=== PATIENT | male | born 1970 | race Two or more races ===

== ENCOUNTER 2023-06-08 09:16 | Inpatient (IN) | payer MEDICAID ==
[~2023-06-08] VITALS: Ht 162.6 cm; Wt 113.4 kg
[2023-06-08 10:17] LABS: Basophils # (auto) 0.1 10 ^3/uL (0-0.2); Basophils % (auto) 0.6 % (0.0-2.0); Eosinophils # (auto) 0.1 10 ^3/uL (0-0.8); Eosinophils % (auto) 0.8 % (0.0-7.0); Hematocrit 47.1 % (41.0-53.0); Hemoglobin 15.4 g/dL (13.5-17.5); Lymphocytes # (auto) 1.4 10 ^3/uL (0.4-5.4); Lymphocytes % (auto) 11.1 % (10.0-50.0); Mean Corpuscular Hemoglobin 28.1 pg (28.0-32.0); Mean Corpuscular Hgb Conc. 32.7 g/dL (32.0-36.0); Mean Corpuscular Volume 85.9 fL (80.0-100.0); Monocytes # (auto) 0.7 10 ^3/uL (0-1.3); Neutrophils # (auto) 10.7 10 ^3/uL (1.6-8.6); Neutrophils % (auto) 82.5 % (37.0-80.0); Red Blood Cells 5.48 10^6/uL (4.5-5.90); Red Cell Distribution Width 15.3 % (11.8-14.3)
[2023-06-08 10:48] LABS: Alanine Aminotransferase 35 U/L (7-40); Albumin 4.3 g/dL (3.2-4.8); Alkaline Phosphatase 66 U/L (46-116); Anion Gap 5 (5-15); Aspartate Aminotransferase 23 U/L (13-40); BUN/Creatinine Ratio 13.9 (10.0-20.0); Bilirubin, Total 0.4 mg/dL (0.2-1.0); Blood Urea Nitrogen 11 mg/dL (9-23); Carbon Dioxide 25 mmol/L (20-30); Chloride 109 mmol/L (98-107); Glucose 139 mg/dL (74-106); Potassium 4.1 mmol/L (3.5-5.1); Sodium 139 mmol/L (136-145); Total Protein 6.8 g/dL (5.7-8.2)
[2023-06-08 11:21] LABS: Lipase 43 U/L (12-53)
[2023-06-08 11:24] LABS: Urine Bacteria NONE SEEN /hpf (None Seen); Urine Blood 3+ /uL (Negative); Urine Clarity Clear (Clear); Urine Color Yellow (Yellow); Urine Mucus FEW (None Seen); Urine Protein, UAD TRACE (Negative); Urine Urobilinogen Normal (Negative); Urine WBC 2 /hpf (0 - 3); Urine pH 6.5 (5.0-8.0)
[2023-06-08] MEDS ORDERED: MORPHINE SULFATE INJ 2 MG/ml SYRG IV PRN (12:15)
[2023-06-08] MEDS ORDERED: ONDANSETRON HCL 4 MG/2 ML VIAL IV PRN (12:15)
[2023-06-08] MEDS ORDERED: DOCUSATE SOD 100 MG CAP PO PRN (12:15)
[2023-06-08] MEDS: SODIUM CHLORIDE 0.9% 1,000 ML IV SCH (12:43)
[2023-06-08] MEDS: DICYCLOMINE HCL (10MG/ML) 2 ML AMPULE IM ONE (12:45)
[2023-06-08 14:19] VITALS: PULSE 80; RESP 19; O2SAT 98
[2023-06-08 15:39] VITALS: PULSE 69; RESP 17; O2SAT 98
[2023-06-08 17:23] VITALS: BP 136/83; PULSE 69; RESP 17; TEMP 97.8; O2SAT 98
[2023-06-08] MEDS: DICYCLOMINE HCL 10 MG CAP PO SCH (19:52)
[2023-06-08 20:19] VITALS: PULSE 67; RESP 18; O2SAT 94
[2023-06-08 21:00] VITALS: BP 111/67; PULSE 67; RESP 18; TEMP 97.7; O2SAT 94
[2023-06-09] VITALS (7 sets, daily range): BP systolic 117–156; BP diastolic 65–81; PULSE 18–80; RESP 14–20; TEMP 97.9–98.4; O2SAT 94–99
[2023-06-09 06:15] LABS: Basophils # (auto) 0.1 10 ^3/uL (0-0.2); Basophils % (auto) 0.8 % (0.0-2.0); Eosinophils # (auto) 0.3 10 ^3/uL (0-0.8); Eosinophils % (auto) 3.4 % (0.0-7.0); Hematocrit 44.8 % (41.0-53.0); Hemoglobin 14.7 g/dL (13.5-17.5); Lymphocytes # (auto) 2.6 10 ^3/uL (0.4-5.4); Lymphocytes % (auto) 28.9 % (10.0-50.0); Mean Corpuscular Hemoglobin 28.1 pg (28.0-32.0); Mean Corpuscular Hgb Conc. 32.9 g/dL (32.0-36.0); Mean Corpuscular Volume 85.4 fL (80.0-100.0); Monocytes # (auto) 0.9 10 ^3/uL (0-1.3); Monocytes % (auto) 9.8 % (0.0-12.0); Neutrophils # (auto) 5.2 10 ^3/uL (1.6-8.6); Neutrophils % (auto) 57.1 % (37.0-80.0); Nucleated Red Blood Cells % 0.1 %; Red Blood Cells 5.24 10^6/uL (4.5-5.90); Red Cell Distribution Width 15.3 % (11.8-14.3)
[2023-06-09 06:38] LABS: Alanine Aminotransferase 27 U/L (7-40); Albumin 3.8 g/dL (3.2-4.8); Aspartate Aminotransferase 21 U/L (13-40)
[2023-06-09 06:39] LABS: Bilirubin, Total 0.6 mg/dL (0.2-1.0); Total Protein 6.3 g/dL (5.7-8.2)
[2023-06-09 06:40] LABS: Chloride 109 mmol/L (98-107); Potassium 3.6 mmol/L (3.5-5.1); Sodium 140 mmol/L (136-145)
[2023-06-09 06:42] LABS: Anion Gap 8 (5-15); Carbon Dioxide 23 mmol/L (20-30)
[2023-06-09 06:43] LABS: Calcium 8.8 mg/dL (8.7-10.4)
[2023-06-09 06:47] LABS: BUN/Creatinine Ratio 13.6 (10.0-20.0); Blood Urea Nitrogen 8 mg/dL (9-23)
[2023-06-09 06:48] LABS: Alkaline Phosphatase 53 U/L (46-116)
[2023-06-09 07:03] LABS: Glucose 111 mg/dL (74-106)
[2023-06-09] MEDS: cefTRIAXone 1GM/50ML D5W 50 ML IV SCH (12:03)
[2023-06-10 01:00] VITALS: BP 136/79; PULSE 76; RESP 18; TEMP 97.9; O2SAT 97
[2023-06-10 05:00] VITALS: BP 115/64; PULSE 82; RESP 18; TEMP 98.1; O2SAT 96
[2023-06-10 08:58] VITALS: BP 120/66; PULSE 67; RESP 18; TEMP 97.6; O2SAT 96
[2023-06-10 12:50] VITALS: BP 128/72; PULSE 68; RESP 19; TEMP 98.2; O2SAT 93
[2023-06-10] MEDS ORDERED: LEVO500T91 PO (13:29)
== END 2023-06-10 14:35 | disposition home or self-care (01) | DRG 465 ==
LOC: ER 09:16 → OVERFLOW 12:10 → EAST 14:35
PROVIDERS: ADMIT Nurse Practitioner Family; ATTEND Nurse Practitioner Family
DX: N20.0 Calculus of kidney (principal); D72.829 Elevated white blood cell count, unspecified; N39.0 Urinary tract infection, site not specified; R31.9 Hematuria, unspecified
CPT/HCPCS: 36415; 74176; 80053; 81001; 83690; 84484; 85025; 96372; G0378

== ENCOUNTER 2023-12-27 13:24 | Emergency (ER) | payer MEDICAID ==
[~2023-12-27] VITALS: Ht 165.1 cm; Wt 90.9 kg
[~2023-12-27 13:24] MED LIST: LEVO500T91 PO
[2023-12-27] MEDS: SODIUM CHLORIDE 0.9% 1,000 ML IVB ONE (13:45)
[2023-12-27 14:14] LABS: Basophils # (auto) 0.1 10 ^3/uL (0-0.2); Basophils % (auto) 0.4 % (0.0-2.0); Eosinophils # (auto) 0.1 10 ^3/uL (0-0.8); Eosinophils % (auto) 0.8 % (0.0-7.0); Hematocrit 45.5 % (41.0-53.0); Hemoglobin 15.6 g/dL (13.5-17.5); Lymphocytes # (auto) 2.1 10 ^3/uL (0.4-5.4); Lymphocytes % (auto) 12.9 % (10.0-50.0); Mean Corpuscular Hemoglobin 29.5 pg (28.0-32.0); Mean Corpuscular Hgb Conc. 34.4 g/dL (32.0-36.0); Mean Corpuscular Volume 85.8 fL (80.0-100.0); Monocytes # (auto) 1.2 10 ^3/uL (0-1.3); Monocytes % (auto) 7.6 % (0.0-12.0); Neutrophils # (auto) 12.4 10 ^3/uL (1.6-8.6); Neutrophils % (auto) 78.3 % (37.0-80.0); Platelet Count (auto) 201 10^3/uL (140-450); Red Cell Distribution Width 14.7 % (11.8-14.3); White Blood Cell 15.9 10^3/uL (4.4-10.8)
[2023-12-27 14:25] LABS: Chloride 108 mmol/L (98-107); Potassium 3.7 mmol/L (3.5-5.1); Sodium 140 mmol/L (136-145)
[2023-12-27 14:26] LABS: Anion Gap 8 (5-15); Calcium 9.4 mg/dL (8.7-10.4); Carbon Dioxide 24 mmol/L (20-31)
[2023-12-27 14:31] LABS: Blood Urea Nitrogen 13 mg/dL (9-23); Glucose 140 mg/dL (74-106)
[2023-12-27] MEDS: KETOROLAC TROMETH 30 MG/ML 1ML VIAL IV ONE (14:49)
[2023-12-27] MEDS: ONDANSETRON HCL 4 MG/2 ML VIAL IV ONE (14:49)
[2023-12-27] MEDS: MORPHINE SULFATE 4 MG/ML SYR/VIAL IV ONE ×2 (14:55→18:39)
[2023-12-27 17:42] LABS: Urine Amorphous Crystal FEW /hpf (None Seen); Urine Bacteria FEW /hpf (None Seen); Urine Blood Negative /uL (Negative); Urine Clarity Ex.Turbid (Clear); Urine Color Yellow (Yellow); Urine Mucus FEW (None Seen); Urine Protein, UAD TRACE (Negative); Urine Specific Gravity 1.028 (1.001-1.035); Urine Urobilinogen Normal (Negative); Urine WBC 17 /hpf (0 - 3); Urine pH 5.5 (5.0-9.0)
[2023-12-27 18:10] VITALS: PULSE 79; RESP 18; TEMP 98.2; O2SAT 96
[2023-12-27 18:39] VITALS: BP 151/60; PULSE 89; RESP 20
== END 2023-12-27 16:57 | disposition short-term general hospital (02) ==
LOC: ER 13:28
DX: N23 Unspecified renal colic (principal); F15.90 Other stimulant use, unspecified, uncomplicated; Z96.652 Presence of left artificial knee joint; Z79.899 Other long term (current) drug therapy
CPT/HCPCS: 36415; 74176; 80048; 81001; 85025; 96361; 96374; 96375; 96376; 99285; J1885; J2270; J2405; J7030